=== PATIENT | male | born 1970 | race Caucasian/White ===

== ENCOUNTER 2017-02-16 18:11 | Inpatient (IN) | payer OTHER ==
[~2017-02-16] VITALS: Ht 170.2 cm; Wt 83.6 kg
[~2017-02-16 18:11] MED LIST: DEPAKOTE125 MG PO; DIVALPROEX SOD500 M1 PO; GEMFIBROZIL600 MG PO; GEODON20 MG PO; LEVOTHYROXINE150 MCG PO; LISINOPRIL20 MG PO; LITHOBID300 MG PO; METOPROLOL SUCC50 MG PO; OMEPRAZOLE20 MG PO; OXCARBAZEPINE600 MG PO; PRILOSEC20 MG PO; QUETIAPINE FUMA25 MG PO; SEROQUEL50 MG PO; SIMVASTATIN40 MG PO; ZIPRASIDONE HCL80 MG PO
[2017-02-16 19:33] LABS: HEMATOCRIT 42.6 % (38.0-50.0); MCH 30.9 PG (29.0-34.0); MCV 88.4 FL (86-99); PLATELET COUNT 264 K/uL (156-360); RBC DIS.WIDTH-CV 12.4 % (11.8-14.6); RBC DIS.WIDTH-SD 40.3 % (39-53); RED BLOOD COUNT 4.82 M/uL (4.00-5.50); WHITE BLOOD COUNT 7.8 K/uL (4.1-10.2)
[2017-02-16] MEDS ORDERED: DEPAKOTE ER500 MG PO (19:34)
[2017-02-16] MEDS ORDERED: SYNTHROID100 MCG PO (19:35)
[2017-02-16] MEDS ORDERED: SAPHRIS10 MG SL (19:35)
[2017-02-16] MEDS ORDERED: HYDROCHLOROTH12.5 M3 PO (19:37)
[2017-02-16] MEDS ORDERED: METOPROLOL SUCC50 MG PO (19:37)
[2017-02-16] MEDS ORDERED: GEMFIBROZIL600 MG PO (19:37)
[2017-02-16] MEDS ORDERED: OXCARBAZEPINE300 MG PO (19:38)
[2017-02-16] MEDS ORDERED: OXCARBAZEPINE600 MG PO (19:38)
[2017-02-16 19:50] LABS: CHLORIDE 101 mEq/L (99-109); POTASSIUM 3.5 mEq/L (3.7-5.4); SODIUM 138 mEq/L (136-147)
[2017-02-16 19:52] LABS: GLUCOSE 70 mg/dL (70-99)
[2017-02-16 19:53] LABS: ANION GAP 16 MEQ/L (2-14)
[2017-02-16 19:55] LABS: SERUM ETHYL ALCOHOL < 10 mg/dL
[2017-02-16 19:56] LABS: GFR ESTIMATE (CALCULATED) > 59 mL/min/
[2017-02-16 19:57] LABS: UREA NITROGEN (BUN) 22 mg/dL (9-23)
[2017-02-16 21:19] LABS: AMPHETAMINE NEGATIVE (500 ng/mL); BARBITURATES NEGATIVE (200 ng/mL); BENZODIAZEPINES NEGATIVE (150 ng/mL); COCAINE NEGATIVE (150 ng/mL); INTERNAL CONTROLS VALID? YES; METHADONE NEGATIVE (200 ng/mL); METHAMPHETAMINE NEGATIVE (500 ng/mL); OPIATES (MORPHINE) NEGATIVE (100 ng/mL); OXYCODONE NEGATIVE (100 ng/mL); PHENCYCLIDINE NEGATIVE (25 ng/mL); PROPOXYPHENE NEGATIVE (300 ng/mL); THC CANNABINOIDS NEGATIVE (50 ng/mL); TRICYCLIC ANTIDEPRESSANTS NEGATIVE (300 ng/mL)
[2017-02-16 21:52] VITALS: BP 119/67
[2017-02-17 07:43] VITALS: BP 126/75
[2017-02-17 15:28] VITALS: BP 117/70
[2017-02-18 07:58] VITALS: BP 101/65
[2017-02-18 11:37] VITALS: BP 115/60
[2017-02-18 16:04] VITALS: BP 111/70
[2017-02-19 07:20] VITALS: BP 102/59
[2017-02-19 15:51] VITALS: BP 118/74
[2017-02-20 07:33] VITALS: BP 145/71
[2017-02-20] MEDS ORDERED: DEPAKOTE ER500 MG PO (09:45)
[2017-02-20] MEDS ORDERED: RISPERDAL2 MG PO (09:45)
[2017-02-20] MEDS ORDERED: DEPAKOTE ER250 MG PO (09:49)
== END 2017-02-20 13:05 | disposition home or self-care (01) | DRG 885 ==
LOC: EME 18:11 → 1WEST 19:19 → EDOF 19:19 → 1WEST 21:04
PROVIDERS: Emergency Medicine
DX: F31.2 Bipolar disorder, current episode manic severe with psychotic features (principal); F17.210 Nicotine dependence, cigarettes, uncomplicated; Z81.8 Family history of other mental and behavioral disorders
CPT/HCPCS: 80048; 85027; 90837; 97150 GO; 97165 GO; 99281; 99285; G0480; J1630

== ENCOUNTER 2017-03-27 15:26 | Inpatient (IN) | payer OTHER ==
[~2017-03-27] VITALS: Ht 170.2 cm; Wt 68.8 kg
[~2017-03-27 15:26] MED LIST changes: +DEPAKOTE ER250 MG PO; +DEPAKOTE ER500 MG PO; +HYDROCHLOROTH12.5 M3 PO; +OXCARBAZEPINE300 MG PO; +RISPERDAL2 MG PO; +SAPHRIS10 MG SL; +SYNTHROID100 MCG PO
[2017-03-27 19:08] LABS: EOSINOPHIL (%) 0.2 % (0-5); HEMATOCRIT 42.6 % (38.0-50.0); IMMATURE GRANULOCYTE (%) 0.3 % (0.0-0.7); INSTRUMENT ABS NEUTROPHIL CT 4.5 K/uL; LYMPHOCYTE COUNT 1.5 K/uL (1.0-2.8); MCH 31.2 PG (29.0-34.0); MCHC 34.7 G/DL (30.0-36.0); MCV 89.9 FL (86-99); MEAN PLAT.VOLUME 9.5 uM^3 (9.0-12.4); MONOCYTE COUNT 0.6 K/uL (0-0.8); NEUTROPHIL COUNT 4.5 K/uL (1.8-6.4); PLATELET COUNT 192 K/uL (156-360); RBC DIS.WIDTH-CV 12.3 % (11.8-14.6); RBC DIS.WIDTH-SD 40.8 % (39-53); RED BLOOD COUNT 4.74 M/uL (4.00-5.50); WHITE BLOOD COUNT 6.5 K/uL (4.1-10.2)
[2017-03-27 19:17] LABS: CHLORIDE 107 mEq/L (99-109); POTASSIUM 3.5 mEq/L (3.7-5.4); SODIUM 140 mEq/L (136-147)
[2017-03-27 19:19] LABS: GLUCOSE 113 mg/dL (70-99)
[2017-03-27 19:20] LABS: ANION GAP 16 MEQ/L (2-14)
[2017-03-27 19:22] LABS: SERUM ETHYL ALCOHOL < 10 mg/dL
[2017-03-27 19:23] LABS: GFR ESTIMATE (CALCULATED) > 59 mL/min/
[2017-03-27 19:24] LABS: UREA NITROGEN (BUN) 9 mg/dL (9-23)
[2017-03-27 19:26] LABS: SALICYLATE < 5.0 MG/DL (15-30)
[2017-03-27 19:43] LABS: AMPHETAMINE NEGATIVE (500 ng/mL); BARBITURATES NEGATIVE (200 ng/mL); BENZODIAZEPINES NEGATIVE (150 ng/mL); COCAINE NEGATIVE (150 ng/mL); INTERNAL CONTROLS VALID? YES; METHADONE NEGATIVE (200 ng/mL); METHAMPHETAMINE NEGATIVE (500 ng/mL); OPIATES (MORPHINE) NEGATIVE (100 ng/mL); OXYCODONE NEGATIVE (100 ng/mL); PHENCYCLIDINE NEGATIVE (25 ng/mL); PROPOXYPHENE NEGATIVE (300 ng/mL); THC CANNABINOIDS NEGATIVE (50 ng/mL); TRICYCLIC ANTIDEPRESSANTS NEGATIVE (300 ng/mL)
[2017-03-27 20:21] VITALS: BP 117/75
[2017-03-27 21:03] VITALS: BP 117/75
[2017-03-28 08:10] VITALS: BP 119/66
[2017-03-28 15:27] VITALS: BP 132/79
[2017-03-29 07:22] VITALS: BP 101/56
[2017-03-30 07:51] VITALS: BP 117/55
[2017-03-30 15:41] VITALS: BP 122/81
[2017-03-31 07:54] VITALS: BP 114/71
[2017-03-31] MEDS ORDERED: DEPAKOTE ER500 MG PO (11:36)
[2017-03-31] MEDS ORDERED: DEPAKOTE ER250 MG PO (11:36)
[2017-03-31] MEDS ORDERED: OXCARBAZEPINE300 MG PO (11:36)
[2017-03-31] MEDS ORDERED: RISPERDAL2 MG PO (11:36)
== END 2017-03-31 12:40 | DRG 885 ==
LOC: EME 15:26 → EDOF 17:05 → 1WEST 17:05 → ENRESERV 20:16 → 1WEST 20:17
PROVIDERS: Emergency Medicine
DX: F31.5 Bipolar disorder, current episode depressed, severe, with psychotic features (principal); F12.10 Cannabis abuse, uncomplicated; F10.10 Alcohol abuse, uncomplicated
CPT/HCPCS: 80048; 80164; 85025; 90837; 97150 GO; 97165 GO; 97530 GO; 99281; 99285; G0480; J1630; J2060; J2794

== ENCOUNTER 2017-04-10 14:14 | Observation (INO) | payer OTHER ==
[~2017-04-10] VITALS: Ht 167.6 cm; Wt 69.5 kg
[2017-04-10 14:54] LABS: EOSINOPHIL (%) 0.9 % (0-5); EOSINOPHIL COUNT 0.1 K/uL (0-0.3); IMMATURE GRANULOCYTE (%) 0.1 % (0.0-0.7); INSTRUMENT ABS NEUTROPHIL CT 4.2 K/uL; LYMPHOCYTE COUNT 2.5 K/uL (1.0-2.8); MCV 88.6 FL (86-99); MEAN PLAT.VOLUME 9.8 uM^3 (9.0-12.4); MONOCYTE (%) 10.3 % (3-12); MONOCYTE COUNT 0.8 K/uL (0-0.8); NEUTROPHIL COUNT 4.2 K/uL (1.8-6.4); PLATELET COUNT 204 K/uL (156-360); RBC DIS.WIDTH-CV 11.9 % (11.8-14.6); RBC DIS.WIDTH-SD 38.5 % (39-53); RED BLOOD COUNT 5.42 M/uL (4.00-5.50); WHITE BLOOD COUNT 7.6 K/uL (4.1-10.2)
[2017-04-10 15:04] LABS: CHLORIDE 104 mEq/L (99-109); POTASSIUM 3.3 mEq/L (3.7-5.4); SODIUM 141 mEq/L (136-147)
[2017-04-10 15:06] LABS: GLUCOSE 95 mg/dL (70-99)
[2017-04-10 15:07] LABS: ANION GAP 11 MEQ/L (2-14)
[2017-04-10 15:09] LABS: SERUM ETHYL ALCOHOL < 10 mg/dL
[2017-04-10 15:10] LABS: ALKALINE PHOSPHATASE 115 IU/L (3-129); GFR ESTIMATE (CALCULATED) > 59 mL/min/
[2017-04-10 15:11] LABS: UREA NITROGEN (BUN) 8 mg/dL (9-23)
[2017-04-10 15:13] LABS: TOTAL CK 1266 IU/L (1-294)
[2017-04-10 15:15] LABS: CREATINE KINASE 1266 IU/L (1-294)
[2017-04-10 15:18] LABS: BASE EXCESS 0.6 mEq/L (-3 to +3); BICARBONATE 24.6 mEq/L (22-26); CARBOXY HGB 4.4 % (0-5); COMMENTS - BLOOD GASES A+C+; DEVICE RA; METHEMOGLOBIN 1.2 % (0-1.5); PCO2 37 mm Hg (35-45); PO2 95 mm Hg (80-100); SITE LR; pH 7.43 (7.35-7.45)
[2017-04-10 15:19] LABS: CK-MB 8.8 ng/mL (0.0-4.9)
[2017-04-10 15:38] LABS: SALICYLATE < 5.0 MG/DL (15-30)
[2017-04-10 15:48] LABS: TOTAL BILIRUBIN 0.5 mg/dL (0.0-1.0)
[2017-04-10 18:36] LABS: ADD MIUA? NO; BILIRUBIN NEGATIVE; BLOOD NEGATIVE; COLOR STRAW ((YELLOW)); GLUCOSE (STRIP) NEGATIVE; KETONES NEGATIVE; LEUKOCYTES NEGATIVE; NITRITE NEGATIVE; PROTEIN (STRIP) NEGATIVE; SPECIFIC GRAVITY 1.004 (1.000-1.030); UCUL ADDED? NO; UROBILINOGEN 0.2 MG/DL (0.2-1.0)
[2017-04-10 18:58] LABS: AMPHETAMINE NEGATIVE (500 ng/mL); BARBITURATES NEGATIVE (200 ng/mL); BENZODIAZEPINES NEGATIVE (150 ng/mL); COCAINE NEGATIVE (150 ng/mL); INTERNAL CONTROLS VALID? YES; METHADONE NEGATIVE (200 ng/mL); METHAMPHETAMINE NEGATIVE (500 ng/mL); OPIATES (MORPHINE) NEGATIVE (100 ng/mL); OXYCODONE NEGATIVE (100 ng/mL); PHENCYCLIDINE NEGATIVE (25 ng/mL); PROPOXYPHENE NEGATIVE (300 ng/mL); THC CANNABINOIDS NEGATIVE (50 ng/mL); TRICYCLIC ANTIDEPRESSANTS NEGATIVE (300 ng/mL)
[2017-04-10 20:45] VITALS: BP 126/77
[2017-04-10 21:19] LABS: TROP-I INTERPRETATION NEGATIVE; TROPONIN-I 0.01 ng/mL (0.0-0.30)
[2017-04-10 23:53] VITALS: BP 122/78
[2017-04-11 04:38] VITALS: BP 122/78
[2017-04-11 07:09] VITALS: BP 122/76
[2017-04-11 09:37] LABS: TROP-I INTERPRETATION NEGATIVE; TROPONIN-I < 0.01 ng/mL (0.0-0.30)
[2017-04-11 11:41] VITALS: BP 109/61
[2017-04-11 14:39] LABS: TROP-I INTERPRETATION NEGATIVE; TROPONIN-I 0.01 ng/mL (0.0-0.30)
[2017-04-11 15:14] VITALS: BP 138/75
[2017-04-11] MEDS ORDERED: LEVOTHYROXINE100 MCG PO (16:19)
[2017-04-11] MEDS ORDERED: PRILOSEC OTC20 MG PO (16:20)
[2017-04-11] MEDS ORDERED: LOPRESSOR50 MG PO (16:21)
[2017-04-11] MEDS ORDERED: HYDROCHLOROTHIA25 MG PO (16:21)
[2017-04-11] MEDS ORDERED: ATARAX,VISTARIL25 MG PO (16:22)
[2017-04-11] MEDS ORDERED: LOPID600 MG PO (16:22)
[2017-04-11] MEDS ORDERED: HYDROXYZINE HCL25 MG PO (16:23)
[2017-04-11] MEDS ORDERED: DEPAKOTE ER500 MG PO (16:24)
[2017-04-11] MEDS ORDERED: OXCARBAZEPINE300 MG PO (16:25)
[2017-04-11] MEDS ORDERED: OXCARBAZEPINE600 MG PO (16:26)
== END 2017-04-11 17:48 | disposition home or self-care (01) ==
LOC: EME 14:14 → EDOF 18:28 → 5WEST 18:28 → ENRESERV 18:33 → 5WEST 20:21
PROVIDERS: Emergency Medicine; Hospitalist; Nurse Practitioner Adult Health
DX: R55 Syncope and collapse (principal); M62.82 Rhabdomyolysis; E87.6 Hypokalemia; F31.89 Other bipolar disorder; E03.9 Hypothyroidism, unspecified; F17.200 Nicotine dependence, unspecified, uncomplicated; Z87.898 Personal history of other specified conditions; Z88.6 Allergy status to analgesic agent
CPT/HCPCS: 36600; 70450; 71010; 80053; 80164; 81003; 82550; 82553; 82803; 84484; 85025; 93005; 93306; 99281; 99285; G0378; G0480; J1650; J2310; J7030

== ENCOUNTER 2018-02-20 10:50 | Emergency (ER) | payer OTHER ==
[~2018-02-20] VITALS: Ht 170.2 cm; Wt 75.7 kg
[~2018-02-20 10:50] MED LIST changes: +ATARAX,VISTARIL25 MG PO; +HYDROCHLOROTHIA25 MG PO; +HYDROXYZINE HCL25 MG PO; +LEVOTHYROXINE100 MCG PO; +LOPID600 MG PO; +LOPRESSOR50 MG PO; +PRILOSEC OTC20 MG PO
[2018-02-20 12:31] LABS: ALBUMIN 4.6 G/DL (3.2-4.8); ALKALINE PHOSPHATASE 77 IU/L (3-129); ALT (GPT) 22 IU/L (3-49); AST (GOT) 57 IU/L (2-34); CHLORIDE 89 MEQ/L (99-109); CREATININE 0.9 MG/DL (0.6-1.3); GFR ESTIMATE (CALCULATED) > 59 mL/min/ (58.99-99999); GLUCOSE 94 mg/dL (70-99); POTASSIUM 3.7 MEQ/L (3.7-5.4); SERUM ETHYL ALCOHOL < 10 mg/dL; SODIUM 125 MEQ/L (136-147); TOTAL BILIRUBIN 0.9 MG/DL (0.0-1.0); TOTAL PROTEIN 6.6 G/DL (6.4-8.3); UREA NITROGEN (BUN) 10 mg/dL (9-23)
[2018-02-20 12:59] LABS: HEMOGLOBIN 14.8 G/DL (12.5-16.6); MCH 30.2 PG (29.0-34.0); MCHC 36.1 G/DL (30.0-36.0); MCV 83.7 FL (86-99); RBC DIS.WIDTH-CV 11.9 % (11.8-14.6); RBC DIS.WIDTH-SD 36.4 % (39-53); WHITE BLOOD COUNT 7.6 K/uL (4.1-10.2)
[2018-02-20 13:15] LABS: PLAT.SUFFICIENCY ADEQUATE; PLATELET COUNT 212 K/uL (156-360)
[2018-02-20 13:29] VITALS: BP 114/74
== END 2018-02-20 13:47 | disposition home or self-care (01) ==
LOC: EME 10:50
PROVIDERS: Physician Assistant
DX: F20.0 Paranoid schizophrenia (principal); E87.1 Hypo-osmolality and hyponatremia; K21.9 Gastro-esophageal reflux disease without esophagitis; F43.10 Post-traumatic stress disorder, unspecified; F32.9 Major depressive disorder, single episode, unspecified; F17.200 Nicotine dependence, unspecified, uncomplicated; Z87.19 Personal history of other diseases of the digestive system; Z88.6 Allergy status to analgesic agent
CPT/HCPCS: 80053; 81003; 85027; 90839; 99281; 99283; G0480

== ENCOUNTER 2018-02-20 17:05 | Emergency (ER) | payer OTHER ==
[~2018-02-20] VITALS: Ht 167.6 cm; Wt 86.3 kg
[2018-02-20 17:20] VITALS: BP 109/67
[2018-02-20 18:42] LABS: CHLORIDE 90 mEq/L (99-109); SODIUM 125 mEq/L (136-147)
[2018-02-20 18:43] LABS: GLUCOSE 85 mg/dL (70-99)
[2018-02-20 18:47] LABS: CREATININE 0.9 mg/dL (0.6-1.3); GFR ESTIMATE (CALCULATED) > 59 mL/min/ (58.99-99999)
[2018-02-20 18:48] LABS: UREA NITROGEN (BUN) 8 mg/dL (9-23)
== END 2018-02-20 19:07 | disposition left against medical advice (07) ==
LOC: EME 17:05
PROVIDERS: Emergency Medicine
DX: Z00.8 Encounter for other general examination (principal); E87.1 Hypo-osmolality and hyponatremia; K21.9 Gastro-esophageal reflux disease without esophagitis; F43.10 Post-traumatic stress disorder, unspecified; F20.0 Paranoid schizophrenia; F31.9 Bipolar disorder, unspecified; F17.200 Nicotine dependence, unspecified, uncomplicated; Z87.19 Personal history of other diseases of the digestive system; Z98.890 Other specified postprocedural states; Z88.6 Allergy status to analgesic agent
CPT/HCPCS: 80048

== ENCOUNTER 2018-02-22 23:23 | Emergency (ER) | payer OTHER ==
[~2018-02-22] VITALS: Ht 170.2 cm; Wt 76.6 kg
[~2018-02-22 23:23] MED LIST changes: -LEVOTHYROXINE100 MCG PO; +LEVOTHYROXINE75 MCG PO
[2018-02-23 00:38] VITALS: BP 138/92
[2018-02-23] MEDS ORDERED: UNABLE TO OBTAIN (00:39)
[2018-02-23] MEDS ORDERED: K-DUR20 MEQ PO (22:15)
== END 2018-02-23 00:56 ==
LOC: EME 23:23
DX: S31.144A Puncture wound of abdominal wall with foreign body, left lower quadrant without penetration into peritoneal cavity, initial encounter (principal); Y35.491A Legal intervention involving other sharp objects, law enforcement official injured, initial encounter; T75.4XXA Electrocution, initial encounter; Y35.891A Legal intervention involving other specified means, law enforcement official injured, initial encounter; F17.200 Nicotine dependence, unspecified, uncomplicated
CPT/HCPCS: 99281; 99284

== ENCOUNTER 2018-02-23 18:10 | Emergency (ER) | payer OTHER ==
[~2018-02-23] VITALS: Ht 170.2 cm; Wt 75.0 kg
[~2018-02-23 18:10] MED LIST changes: +UNABLE TO OBTAIN
[2018-02-23 19:01] LABS: ALBUMIN 4.2 g/dL (3.2-4.8)
[2018-02-23 19:02] LABS: CHLORIDE 92 mEq/L (99-109); HEMATOCRIT 35.6 % (38.0-50.0); HEMOGLOBIN 13.7 G/DL (12.5-16.6); MCH 31.6 PG (29.0-34.0); MCHC 38.5 G/DL (30.0-36.0); PLATELET COUNT 219 K/uL (156-360); POTASSIUM 2.8 mEq/L (3.7-5.4); RBC DIS.WIDTH-CV 11.7 % (11.8-14.6); RBC DIS.WIDTH-SD 35.2 % (39-53); RED BLOOD COUNT 4.34 M/uL (4.00-5.50); SODIUM 129 mEq/L (136-147); WHITE BLOOD COUNT 7.7 K/uL (4.1-10.2)
[2018-02-23 19:04] LABS: GLUCOSE 97 mg/dL (70-99); TOTAL PROTEIN 6.5 g/dL (6.4-8.3)
[2018-02-23 19:07] LABS: ALKALINE PHOSPHATASE 78 IU/L (3-129); SERUM ETHYL ALCOHOL < 10 mg/dL
[2018-02-23 19:08] LABS: CREATININE 0.8 mg/dL (0.6-1.3); GFR ESTIMATE (CALCULATED) > 59 mL/min/ (58.99-99999)
[2018-02-23 19:09] LABS: AST (GOT) 177 IU/L (2-34); UREA NITROGEN (BUN) 6 mg/dL (9-23)
[2018-02-23 19:11] LABS: ALT (GPT) 70 IU/L (3-49)
[2018-02-23 19:47] LABS: APPEARANCE CLEAR ((CLEAR)); BILIRUBIN NEGATIVE; BLOOD NEGATIVE; COLOR STRAW ((YELLOW)); GLUCOSE (STRIP) NEGATIVE; KETONES NEGATIVE; LEUKOCYTES NEGATIVE; NITRITE NEGATIVE; PROTEIN (STRIP) NEGATIVE; SPECIFIC GRAVITY 1.003 (1.000-1.030); UCUL ADDED? NO; UROBILINOGEN 0.2 MG/DL (0.2-1.0)
[2018-02-23 20:19] LABS: AMPHETAMINE NEGATIVE (500 ng/mL); BARBITURATES NEGATIVE (200 ng/mL); BENZODIAZEPINES NEGATIVE (150 ng/mL); BUPRENORPHINE NEGATIVE (10 ng/mL); COCAINE NEGATIVE (150 ng/mL); METHADONE NEGATIVE (200 ng/mL); METHAMPHETAMINE NEGATIVE (500 ng/mL); OPIATES (MORPHINE) NEGATIVE (100 ng/mL); OXYCODONE NEGATIVE (100 ng/mL); PHENCYCLIDINE NEGATIVE (25 ng/mL); PROPOXYPHENE NEGATIVE (300 ng/mL); THC CANNABINOIDS NEGATIVE (50 ng/mL); TRICYCLIC ANTIDEPRESSANTS NEGATIVE (300 ng/mL)
[2018-02-23] MEDS ORDERED: K-DUR20 MEQ PO (22:15)
[2018-02-23 22:40] VITALS: BP 137/84
== END 2018-02-23 22:40 | disposition home or self-care (01) ==
LOC: EME 18:10
PROVIDERS: Physician Assistant
DX: E87.6 Hypokalemia (principal); R46.89 Other symptoms and signs involving appearance and behavior; K21.9 Gastro-esophageal reflux disease without esophagitis; F32.9 Major depressive disorder, single episode, unspecified; F20.0 Paranoid schizophrenia; F43.10 Post-traumatic stress disorder, unspecified; F17.200 Nicotine dependence, unspecified, uncomplicated
CPT/HCPCS: 80053; 81003; 85027; 90837; 93005; 99281; 99285; G0480; J3480

== ENCOUNTER 2018-02-26 22:32 | Inpatient (IN) | payer OTHER ==
[~2018-02-26] VITALS: Ht 170.2 cm; Wt 74.7 kg
[~2018-02-26 22:32] MED LIST changes: +K-DUR20 MEQ PO
[2018-02-27 03:17] LABS: HEMATOCRIT 37.3 % (38.0-50.0); HEMOGLOBIN 13.5 G/DL (12.5-16.6); MCH 30.9 PG (29.0-34.0); MCHC 36.2 G/DL (30.0-36.0); MCV 85.4 FL (86-99); PLATELET COUNT 275 K/uL (156-360); RBC DIS.WIDTH-SD 37.5 % (39-53); RED BLOOD COUNT 4.37 M/uL (4.00-5.50); WHITE BLOOD COUNT 10.2 K/uL (4.1-10.2)
[2018-02-27 03:30] LABS: ALBUMIN 3.9 g/dL (3.2-4.8)
[2018-02-27 03:32] LABS: CHLORIDE 104 mEq/L (99-109); GLUCOSE 112 mg/dL (70-99); POTASSIUM 3.5 mEq/L (3.7-5.4); SODIUM 140 mEq/L (136-147)
[2018-02-27 03:33] LABS: TOTAL PROTEIN 6.2 g/dL (6.4-8.3)
[2018-02-27 03:36] LABS: ALKALINE PHOSPHATASE 77 IU/L (3-129); CREATININE 0.8 mg/dL (0.6-1.3); GFR ESTIMATE (CALCULATED) > 59 mL/min/ (58.99-99999)
[2018-02-27 03:37] LABS: TOTAL BILIRUBIN 0.5 mg/dL (0.0-1.0); UREA NITROGEN (BUN) 13 mg/dL (9-23)
[2018-02-27 03:39] LABS: ALT (GPT) 53 IU/L (3-49)
[2018-02-27 03:47] LABS: AST (GOT) 68 IU/L (2-34)
[2018-02-27 06:09] LABS: AMYLASE 33 IU/L (1-118)
[2018-02-27 06:14] LABS: SERUM ETHYL ALCOHOL < 10 mg/dL
[2018-02-27 06:17] LABS: LIPASE 38 U/L (1.0-51.0)
[2018-02-27 06:20] LABS: TROP-I INTERPRETATION NEGATIVE; TROPONIN-I 0.01 ng/mL (0.0-0.30)
[2018-02-27 09:01] LABS: GAMMA-GT 18 IU/L (4-73)
[2018-02-27] MEDS ORDERED: PRAZOSIN HCL2 MG PO (10:29)
[2018-02-27] MEDS ORDERED: LAMOTRIGINE100 MG PO (10:29)
[2018-02-27] MEDS ORDERED: DEXTROAMP-AMPHE15 MG PO (10:29)
[2018-02-27] MEDS ORDERED: RISPERDAL2 MG PO (10:30)
[2018-02-27] MEDS ORDERED: METOPROLOL SUCC50 MG PO (10:30)
[2018-02-27] MEDS ORDERED: HYDROCHLOROTH12.5 M3 PO (10:31)
[2018-02-27] MEDS ORDERED: ATARAX,VISTARIL25 MG PO (10:31)
[2018-02-27] MEDS ORDERED: OMEPRAZOLE20 MG PO (10:31)
[2018-02-27] MEDS ORDERED: ATORVASTATIN CA40 MG PO (10:31)
[2018-02-27] MEDS ORDERED: GEMFIBROZIL600 MG PO (10:32)
[2018-02-27] MEDS ORDERED: OXCARBAZEPINE300 MG PO (10:43)
[2018-02-27 13:26] LABS: APPEARANCE CLEAR ((CLEAR)); BILIRUBIN NEGATIVE; BLOOD NEGATIVE; COLOR YELLOW ((YELLOW)); GLUCOSE (STRIP) NEGATIVE; KETONES 5; LEUKOCYTES NEGATIVE; NITRITE NEGATIVE; PROTEIN (STRIP) NEGATIVE; UCUL ADDED? NO
[2018-02-27 13:37] LABS: AMPHETAMINE NEGATIVE (500 ng/mL); BARBITURATES NEGATIVE (200 ng/mL); BENZODIAZEPINES NEGATIVE (150 ng/mL); BUPRENORPHINE NEGATIVE (10 ng/mL); COCAINE NEGATIVE (150 ng/mL); METHADONE NEGATIVE (200 ng/mL); METHAMPHETAMINE NEGATIVE (500 ng/mL); OPIATES (MORPHINE) NEGATIVE (100 ng/mL); OXYCODONE NEGATIVE (100 ng/mL); PHENCYCLIDINE NEGATIVE (25 ng/mL); PROPOXYPHENE NEGATIVE (300 ng/mL); THC CANNABINOIDS NEGATIVE (50 ng/mL); TRICYCLIC ANTIDEPRESSANTS NEGATIVE (300 ng/mL)
[2018-02-27 14:00] VITALS: BP 125/70
[2018-02-27 14:01] VITALS: BP 125/70
[2018-02-27 19:14] VITALS: BP 116/58
[2018-02-27 23:49] VITALS: BP 130/72
[2018-02-28] VITALS (7 sets, daily range): BP systolic 107–136; BP diastolic 63–77
[2018-02-28 06:26] LABS: HEMATOCRIT 36.8 % (38.0-50.0); HEMOGLOBIN 12.6 G/DL (12.5-16.6); MCH 30.1 PG (29.0-34.0); MCHC 34.2 G/DL (30.0-36.0); PLATELET COUNT 260 K/uL (156-360); RBC DIS.WIDTH-CV 12.4 % (11.8-14.6); RBC DIS.WIDTH-SD 40.4 % (39-53); RED BLOOD COUNT 4.18 M/uL (4.00-5.50); WHITE BLOOD COUNT 8.3 K/uL (4.1-10.2)
[2018-02-28 06:50] LABS: ALBUMIN 3.5 G/DL (3.2-4.8); ALKALINE PHOSPHATASE 53 IU/L (3-129); ALT (GPT) 30 IU/L (3-49); AST (GOT) 30 IU/L (2-34); CHLORIDE 105 MEQ/L (99-109); CREATININE 0.8 MG/DL (0.6-1.3); GFR ESTIMATE (CALCULATED) > 59 mL/min/ (58.99-99999); GLUCOSE 126 mg/dL (70-99); POTASSIUM 3.8 MEQ/L (3.7-5.4); SODIUM 140 MEQ/L (136-147); TOTAL BILIRUBIN 0.6 MG/DL (0.0-1.0); TOTAL PROTEIN 5.2 G/DL (6.4-8.3); UREA NITROGEN (BUN) 9 mg/dL (9-23)
[2018-02-28 07:16] LABS: COMMENTS - BLOOD GASES A+C+; DEVICE NC; O2 FLOW 4 L/MIN; SITE LR
[2018-02-28 07:17] LABS: BASE EXCESS 3.2 mEq/L (-3 to +3); BICARBONATE 26.9 mEq/L (22-26); CARBOXY HGB 2.2 % (0-5); METHEMOGLOBIN 0.8 % (0-1.5); PCO2 37 mm Hg (35-45); PO2 53 mm Hg (80-100); TOTAL RESP RATE 30 resp/min; pH 7.47 (7.35-7.45)
[2018-03-01 04:04] VITALS: BP 124/68
[2018-03-01 05:55] LABS: BASOPHIL (%) 0.3 % (0-1); EOSINOPHIL (%) 1.8 % (0-5); EOSINOPHIL COUNT 0.1 K/uL (0-0.3); HEMATOCRIT 36.5 % (38.0-50.0); HEMOGLOBIN 12.3 G/DL (12.5-16.6); IMMATURE GRANULOCYTE (%) 0.5 % (0.0-0.7); LYMPHOCYTE COUNT 1.3 K/uL (1.0-2.8); MCH 30.5 PG (29.0-34.0); MCHC 33.7 G/DL (30.0-36.0); MCV 90.6 FL (86-99); MONOCYTE (%) 6.4 % (3-12); MONOCYTE COUNT 0.5 K/uL (0-0.8); NEUTROPHIL COUNT 5.9 K/uL (1.8-6.4); PLATELET COUNT 248 K/uL (156-360); RBC DIS.WIDTH-CV 12.7 % (11.8-14.6); RED BLOOD COUNT 4.03 M/uL (4.00-5.50); WHITE BLOOD COUNT 7.8 K/uL (4.1-10.2)
[2018-03-01 06:14] LABS: CHLORIDE 109 MEQ/L (99-109); CREATININE 0.7 MG/DL (0.6-1.3); GFR ESTIMATE (CALCULATED) > 59 mL/min/ (58.99-99999); GLUCOSE 104 mg/dL (70-99); POTASSIUM 3.4 MEQ/L (3.7-5.4); SODIUM 141 MEQ/L (136-147); UREA NITROGEN (BUN) 8 mg/dL (9-23)
[2018-03-01 07:27] VITALS: BP 125/65
[2018-03-01 11:44] VITALS: BP 95/82
[2018-03-01 16:51] VITALS: BP 119/76
[2018-03-01 20:20] VITALS: BP 99/60
[2018-03-01 23:55] VITALS: BP 123/73
[2018-03-02 03:15] VITALS: BP 125/73
[2018-03-02 07:34] VITALS: BP 121/75
[2018-03-02 10:22] LABS: BASOPHIL (%) 0.3 % (0-1); EOSINOPHIL COUNT 0.2 K/uL (0-0.3); HEMATOCRIT 36.9 % (38.0-50.0); HEMOGLOBIN 12.4 G/DL (12.5-16.6); IMMATURE GRANULOCYTE (%) 0.3 % (0.0-0.7); LYMPHOCYTE (%) 12.4 % (15-42); LYMPHOCYTE COUNT 0.7 K/uL (1.0-2.8); MCH 29.6 PG (29.0-34.0); MCHC 33.6 G/DL (30.0-36.0); MCV 88.1 FL (86-99); MONOCYTE (%) 7.4 % (3-12); MONOCYTE COUNT 0.4 K/uL (0-0.8); NEUTROPHIL (%) 75.6 % (45-76); NEUTROPHIL COUNT 4.4 K/uL (1.8-6.4); PLATELET COUNT 294 K/uL (156-360); RBC DIS.WIDTH-CV 12.9 % (11.8-14.6); RBC DIS.WIDTH-SD 41.2 % (39-53); RED BLOOD COUNT 4.19 M/uL (4.00-5.50); WHITE BLOOD COUNT 5.8 K/uL (4.1-10.2)
[2018-03-02 11:01] LABS: CHLORIDE 113 MEQ/L (99-109); CREATININE 0.6 MG/DL (0.6-1.3); GFR ESTIMATE (CALCULATED) > 59 mL/min/ (58.99-99999); GLUCOSE 114 mg/dL (70-99); SODIUM 146 MEQ/L (136-147); UREA NITROGEN (BUN) 4 mg/dL (9-23)
[2018-03-02 11:27] VITALS: BP 112/69
[2018-03-02] MEDS ORDERED: ULTRAM50 MG PO (15:09)
[2018-03-02] MEDS ORDERED: AUGMENTIN875 MG PO (15:09)
[2018-03-02] MEDS ORDERED: NICODERM CQ1 EAC2 TD (15:21)
[2018-03-02] MEDS ORDERED: SPIRIVA RESPIMAT4 GM IH (15:22)
== END 2018-03-02 16:57 | disposition home or self-care (01) | DRG 200 ==
LOC: EME 22:32 → TRA 22:32 → 3EAST 02-27 05:30 → EDOF 02-27 05:30 → 4EAST 02-27 05:30 → ENRESERV 02-27 07:18 → 3EAST 02-27 13:21 → ENRESERV 02-28 07:40 → 3EAST 02-28 07:56 → ENRESERV 02-28 08:10 → 4EAST 02-28 09:12
PROVIDERS: Emergency Medicine; Family Medicine; Physician Assistant; Surgery
PROC: 0W9930Z Drainage of Right Pleural Cavity with Drainage Device, Percutaneous Approach (ICD-10-PCS; principal; 2018-02-27)
PROC: 0HQ0XZZ Repair Scalp Skin, External Approach (ICD-10-PCS; principal; 2018-02-27)
DX: S27.0XXA Traumatic pneumothorax, initial encounter (principal); S06.0X9A Concussion with loss of consciousness of unspecified duration, initial encounter; S22.43XA Multiple fractures of ribs, bilateral, initial encounter for closed fracture; S01.01XA Laceration without foreign body of scalp, initial encounter; J44.9 Chronic obstructive pulmonary disease, unspecified; Y04.8XXA Assault by other bodily force, initial encounter; F31.9 Bipolar disorder, unspecified; K21.9 Gastro-esophageal reflux disease without esophagitis; I10 Essential (primary) hypertension; F12.90 Cannabis use, unspecified, uncomplicated; F17.210 Nicotine dependence, cigarettes, uncomplicated; F10.20 Alcohol dependence, uncomplicated; E03.9 Hypothyroidism, unspecified; E78.5 Hyperlipidemia, unspecified; Z56.0 Unemployment, unspecified; E87.6 Hypokalemia; D64.9 Anemia, unspecified; S22.069A Unspecified fracture of T7-T8 vertebra, initial encounter for closed fracture; R09.02 Hypoxemia; J98.11 Atelectasis; K42.0 Umbilical hernia with obstruction, without gangrene; K80.20 Calculus of gallbladder without cholecystitis without obstruction; M47.9 Spondylosis, unspecified; T79.7XXA Traumatic subcutaneous emphysema, initial encounter
CPT/HCPCS: 36600; 70450; 70486; 71045; 71260; 72125; 74177; 80048; 80053; 81003; 82150; 82803; 82948; 82977; 83605; 83690; 84153; 84484; 85025; 85027; 85379; 86850; 86900; 86901; 87040; 87086; 93005; 94640; 94760; 94799; 99281; 99285; G0480; J0295; J1650; J2060; J2543; J3370; J7030; J7050; J7120